=== PATIENT | female | born 1980 | race Caucasian/White ===

== ENCOUNTER 2020-08-30 13:04 | Emergency (ER) | payer BC ==
[2020-08-30 13:28] VITALS: BMI 21.2
[2020-08-30 16:04] VITALS: BP 142/85; PULSE 65; TEMP 97.9
== END 2020-08-30 16:04 | disposition home or self-care (01) ==
LOC: JER 13:04
DX: R06.02 Shortness of breath (principal); R07.9 Chest pain, unspecified
CPT/HCPCS: 93005; 93010; 99281-25